=== PATIENT | male | born 1985 | race Caucasian/White ===

== ENCOUNTER 2020-12-06 10:52 | Emergency (ER) | payer OTHER ==
[~2020-12-06 10:52] MED LIST: AUGMENTIN 875-1 EACH PO; HYDROXYZINE HCL50 MG PO; NORCO 7.5-3251 EACH PO; PERCOCET 5/325 T1 EA PO; TORADOL 10 MG T10 MG PO
== END 2020-12-06 13:25 | disposition home or self-care (01) ==
LOC: ER1 10:52
DX: J06.9 Acute upper respiratory infection, unspecified (principal); Z20.822 Contact with and (suspected) exposure to COVID-19
CPT/HCPCS: 0240U; 99283